=== PATIENT | male | born 1970 | race Two or more races ===

== ENCOUNTER 2020-09-02 17:10 | Emergency (ER) | payer OTHER ==
[~2020-09-02] VITALS: Ht 172.7 cm; Wt 63.5 kg
[2020-09-02 17:53] LABS: Basophils # (auto) 0 10 ^3/uL (0-0.2); Basophils % (auto) 0.6 % (0.0-2.0); Eosinophils # (auto) 0.2 10 ^3/uL (0-0.8); Eosinophils % (auto) 3.6 % (0.0-7.0); Hematocrit 40.4 % (41.0-53.0); Hemoglobin 13.8 g/dL (13.5-17.5); Lymphocytes # (auto) 1.9 10 ^3/uL (0.4-5.4); Lymphocytes % (auto) 37.9 % (10.0-50.0); Mean Corpuscular Hemoglobin 29.5 pg (28.0-32.0); Mean Corpuscular Hgb Conc. 34.1 g/dL (32.0-36.0); Mean Corpuscular Volume 86.4 fL (80.0-100.0); Monocytes # (auto) 0.3 10 ^3/uL (0-1.3); Monocytes % (auto) 6.3 % (0.0-12.0); Neutrophils # (auto) 2.6 10 ^3/uL (1.6-8.6); Neutrophils % (auto) 51.6 % (37.0-80.0); Nucleated Red Blood Cells % 0.1 %; Platelet Count (auto) 273 10^3/uL (140-450); Red Blood Cells 4.67 10^6/uL (4.5-5.90); Red Cell Distribution Width 14.4 % (11.8-14.3); White Blood Cell 5.1 10^3/uL (4.4-10.8)
[2020-09-02 18:09] LABS: Acetaminophen < 2.0 ug/mL (10-30); Albumin 3.9 g/dL (3.4-5.0); Magnesium 2.7 mg/dL (1.6-2.6); Potassium 3.8 mmol/L (3.5-5.1); Salicylate 2.7 mg/dL (2.8-20.0)
[2020-09-02 18:11] LABS: BUN/Creatinine Ratio 15.4
[2020-09-02] MEDS ORDERED: diphenhdrAMINE HCL 50 MG/1 ML VL ONE (18:11)
[2020-09-02] MEDS ORDERED: LORazepam 2MG/ML-1ML VIAL ONE (18:11)
[2020-09-02] MEDS ORDERED: HALOPERIDOL LACTATE 5 MG/ML INJ VIAL ONE (18:12)
[2020-09-02 18:14] LABS: Bilirubin, Total 0.3 mg/dL (0.2-1.0); Total Protein 6.8 g/dL (6.4-8.2)
[2020-09-02] MEDS ORDERED: diphenhdrAMINE HCL 50 MG/1 ML VL IM ONE (18:15)
[2020-09-02] MEDS ORDERED: HALOPERIDOL LACTATE 5 MG/ML INJ VIAL IM ONE (18:15)
[2020-09-02] MEDS ORDERED: LORazepam 2MG/ML-1ML VIAL IM ONE (18:15)
[2020-09-02] MEDS ORDERED: SODIUM CHLORIDE 0.9% 1,000 ML IV ONE (18:30)
[2020-09-02] MEDS ORDERED: THIAMINE INJ 100 MG in SODIUM CHLORIDE 0.9% 1,000 ML IV ONE (18:30)
[2020-09-02] MEDS ORDERED: THIAMINE 100mg/ml INJ (200mg/2ml VIAL) ONE (20:24)
[2020-09-02] MEDS ORDERED: SODIUM CHLORIDE 0.9% 2,000 ML IV ONE (22:15)
[2020-09-03 09:54] VITALS: BP 155/85
== END 2020-09-03 10:10 | disposition home or self-care (01) ==
LOC: ER 17:10 → EDBD 17:10 → ER 22:25
DX: F10.920 Alcohol use, unspecified with intoxication, uncomplicated (principal); F17.210 Nicotine dependence, cigarettes, uncomplicated
CPT/HCPCS: 36415; 70450; 80053; 80320; 80329; 83735; 85025; 93005; 96361; 96365; 96372; 99285; J1200; J1630; J2060; J3411; J7030

== ENCOUNTER 2021-07-23 17:17 | Emergency (ER) | payer OTHER ==
[~2021-07-23] VITALS: Ht 167.6 cm; Wt 54.4 kg
[2021-07-23] MEDS ORDERED: OXYMETAZOLINE HCL 0.05 % NASAL SPRAY 15ML EACHNOSTRI ONE (18:00)
[2021-07-23] MEDS ORDERED: TETANUS-DIPTH-ACEL PERTUSSIS 0.5ML SYR Tdap IM ONE (18:00)
[2021-07-23 19:13] LABS: Basophils # (auto) 0 10 ^3/uL (0-0.2); Basophils % (auto) 0.3 % (0.0-2.0); Eosinophils # (auto) 0.1 10 ^3/uL (0-0.8); Eosinophils % (auto) 1.4 % (0.0-7.0); Hemoglobin 14.2 g/dL (13.5-17.5); Lymphocytes # (auto) 1.8 10 ^3/uL (0.4-5.4); Lymphocytes % (auto) 31.3 % (10.0-50.0); Mean Corpuscular Hemoglobin 28.6 pg (28.0-32.0); Mean Corpuscular Hgb Conc. 33.9 g/dL (32.0-36.0); Mean Corpuscular Volume 84.2 fL (80.0-100.0); Monocytes # (auto) 0.5 10 ^3/uL (0-1.3); Monocytes % (auto) 8.4 % (0.0-12.0); Neutrophils # (auto) 3.3 10 ^3/uL (1.6-8.6); Neutrophils % (auto) 58.6 % (37.0-80.0); Nucleated Red Blood Cells % 0.2 %; Red Blood Cells 4.98 10^6/uL (4.5-5.90); White Blood Cell 5.7 10^3/uL (4.4-10.8)
[2021-07-23 19:31] LABS: Albumin 4.1 g/dL (3.4-5.0); Calcium 8.7 mg/dL (8.5-10.1); Potassium 3.5 mmol/L (3.5-5.1)
[2021-07-23 19:36] LABS: BUN/Creatinine Ratio 12.2; Bilirubin, Total 0.2 mg/dL (0.2-1.0); Total Protein 7.4 g/dL (6.4-8.2)
[2021-07-23] MEDS ORDERED: LIDOCAINE W/ EPINEPHRINE 1% 20ML VIAL ID ONE (20:15)
[2021-07-23] MEDS ORDERED: LIDOCAINE 1% HCL (LOCAL ANESTH.) INJ 20ML MDV ONE (20:20)
[2021-07-23] MEDS ORDERED: CEPHALEXIN 250 MG CAP PO ONE (21:00)
[2021-07-23] MEDS ORDERED: LIDOCAINE 1% HCL (LOCAL ANESTH.) INJ 20ML MDV ID ONE (21:00)
[2021-07-23] MEDS ORDERED: CEPH-509 PO ×2 (21:08→21:14)
[2021-07-23] MEDS ORDERED: BAC09TP TOP ×2 (21:08→21:14)
[2021-07-23] MEDS ORDERED: ACE650RS PR ×2 (21:08→21:14)
[2021-07-23 21:20] VITALS: BP 119/78
== END 2021-07-23 21:42 | disposition home or self-care (01) ==
LOC: ER 17:17
DX: S01.81XA Laceration without foreign body of other part of head, initial encounter (principal); F10.129 Alcohol abuse with intoxication, unspecified; X58.XXXA Exposure to other specified factors, initial encounter; Y93.89 Activity, other specified; Y92.89 Other specified places as the place of occurrence of the external cause; Y99.8 Other external cause status; Y90.8 Blood alcohol level of 240 mg/100 ml or more
CPT/HCPCS: 12011; 36415; 70450; 70486; 72125; 80053; 80320; 85025; 90471; 90715; 99284; J2001